=== PATIENT | male | born 2000 | race Caucasian/White ===

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

== ENCOUNTER 2018-10-11 04:12 | Emergency (ER) | payer OTHER ==
[~2018-10-11] VITALS: Ht 172.7 cm; Wt 59.5 kg
[2018-10-11 04:14] VITALS: Ht 172.7 cm; Wt 59.5 kg
[2018-10-11 06:25] VITALS: BP 104/54
== END 2018-10-11 06:25 | disposition home or self-care (01) ==
LOC: ED 04:12
DX: M25.511 Pain in right shoulder (principal); R07.89 Other chest pain
CPT/HCPCS: J1885